=== PATIENT | male | born 1940 | race Caucasian/White ===

== ENCOUNTER → 2018-06-13 | Outpatient (CLI) | payer MEDICARE, OTHER ==
[~2018-06-13] MED LIST: BIMA2.5D EACHEYE; CHOL10003 PO; TIMO5SOL11 EACHEYE
[2018-06-13 15:43] LABS: MICROSCOPIC NOT IND
== END | disposition home or self-care (01) ==
LOC: STAR 14:03
PROVIDERS: ATTEND Urology
DX: Z01.818 Encounter for other preprocedural examination (principal); N20.0 Calculus of kidney
CPT/HCPCS: 71046; 81003; 87086; 93005

== ENCOUNTER 2018-06-24 06:11 | Day surgery (SDC) | payer MEDICARE, OTHER ==
[~2018-06-24] VITALS: Ht 172.7 cm; Wt 98.0 kg
[2018-06-24] MEDS ORDERED: LACTATED RINGERS 1,000 ML IV SCH (06:44)
[2018-06-24] MEDS ORDERED: LIDOCAINE-MPF 1%, 2ML INFIL ONE (07:00)
[2018-06-24] MEDS ORDERED: FENTANYL PF 100 MCG/2ML ONE (09:22)
[2018-06-24] MEDS ORDERED: DEXAMETHASONE 4 MG/ML, 1ML ONE (09:29)
[2018-06-24] MEDS ORDERED: PROPOFOL 10 MG/ML, 20ML ONE (09:29)
[2018-06-24] MEDS ORDERED: ONDANSETRON 2MG/ML, 2ML ONE (09:29)
[2018-06-24] MEDS ORDERED: ALBUTEROL SULFATE 2.5 MG/3 ML NPPB PRN (10:30)
[2018-06-24] MEDS ORDERED: HYDROmorphone 1 MG/ML, 1ML IV PRN (10:30)
[2018-06-24] MEDS ORDERED: hydrALAzine 20 MG/ML, 1ML IV PRN (10:30)
[2018-06-24] MEDS ORDERED: FENTANYL PF 100 MCG/2ML IV PRN (10:30)
[2018-06-24] MEDS ORDERED: ACETAMINOPHEN 325 MG TABLET PO PRN (10:30)
[2018-06-24] MEDS ORDERED: OXYcodone 5 MG/5 ML ORAL.SOL UDC PO PRN (10:30)
[2018-06-24] MEDS ORDERED: LABETALOL 5MG/ML, 20ML IV PRN (10:30)
[2018-06-24] MEDS ORDERED: PROMETHAZINE 25 MG/ML, 1ML IV PRN (10:30)
[2018-06-24] MEDS ORDERED: LORazepam 2 MG/ML, 1ML IVPush PRN (10:30)
== END 2018-06-24 13:40 ==
LOC: OUT 06:11
PROVIDERS: ATTEND Urology
DX: N20.1 Calculus of ureter (principal); Z88.1 Allergy status to other antibiotic agents; Z88.8 Allergy status to other drugs, medicaments and biological substances; Z87.891 Personal history of nicotine dependence
CPT/HCPCS: 52356; 74018; 76000; C1726; C1769; C2617; J1100; J1200; J2250; J2405; J2704; J3010; J3490; J7120